=== PATIENT | female | born 1980 | race Caucasian/White ===

== ENCOUNTER → 2019-12-30 | Outpatient (CLI) | payer OTHER ==
--- NOTE | 2019-12-30 15:06 | US ---
EXAMINATION TYPE: Transabdominal DATE OF EXAM: 12/30/2019 12:53 PM COMPARISON: NONE CLINICAL HISTORY: O76 Absent heart tone. EXAM PERFORMED: Transabdominal (TA) EXAM MEASUREMENTS: GESTATIONAL AGE / DATING Physician Established: Not yet established Dates by LMP: LMP unknown Dates by First Scan: No previous Dates by Current Scan for: (11weeks/1 day) EDC: 07/19/2020 MATERNAL ANATOMY Uterus: 11.4 x 8.5 x 7.8cm; multiple Nabothian Cysts seen in cervix with largest = 0.8 x 1.2 x 1.4cm. Right Ovary: not seen Left Ovary: 4.2 x 2.0 x 2.5cm Post CDS / Adnexa: wnl Presence of free fluid: no Presence of corpus luteal cyst: in left ovary = 1.4 x 1.2 x 1.0cm Presence of subchorionic bleed: no GESTATION / SURVEY CRL: 4.2cm 11wks/1 day) Yolk Sac (normal less than 6mm): 3.5mm Heart Rate: 164bpm Rhythm: Normal IUP: Single, IUP Nuchal Translucency 10-14wks (normal less than 3mm): 0.8mm Date of LMP: unsure Beta HcG (if available): NA Single, live IUP, 11 weeks/1 day, EDC: 07/19/2020, HR 164bpm. Tech findings called to Dr Carson at exam's end. IMPRESSION: Single intrauterine gestation estimated at 11 weeks 0 days gestation based on crown-rump length. Card iac activity was documented at 164 bpm.
== END | disposition home or self-care (01) ==
LOC: RADUSWWP 12:24
PROVIDERS: ATTEND Obstetrics & Gynecology
DX: O76 Abnormality in fetal heart rate and rhythm complicating labor and delivery (principal); O09.511 Supervision of elderly primigravida, first trimester; Z3A.11 11 weeks gestation of pregnancy
CPT/HCPCS: 76801; 76813

== ENCOUNTER → 2020-05-09 | Outpatient (CLI) | payer OTHER ==
--- NOTE | 2020-05-09 16:01 | US ---
EXAMINATION TYPE: US OB anatomy transabd DATE OF EXAM: 05/09/2020 COMPARISON: NONE HISTORY: O36.63X0 Large for dates 3rd trimester Anatomy TECHNIQUE: Transabdominal (TA) EXAM MEASUREMENTS: GESTATIONAL AGE / DATING Physician Established: (29 weeks/6 days) EDC: 07/19/2020 Dates by LMP: Unknown Dates by First Scan: (29 weeks/6 days) EDC: 07/19/2020 Dates by Current Scan for: (30 weeks/2 days) EDC: 07/16/2020 SURVEY IUP: Single PLACENTA: Posterior PREVIA: No previa MORGAN: 13.1 cm Normal CERVICAL LENGTH (transabdominal: norm > 3.0cm): 3.2 cm BIOMETRY PRESENTATION: Vertex BPD: 7.9 cm 31 weeks / 4 days HC: 28.8 cm 31 weeks / 5 days AC: 23.7 cm 28 weeks / 0 days FL: 5.6 cm 29 weeks / 5 days ESTIMATED WEIGHT IN GRAMS: 1340 grams ESTIMATED WEIGHT IN LBS/OZ: 2 lbs. 15 oz. WEIGHT PERCENTAGE BASED ON ESTABLISHED DATE: 16 % HC/AC: 1.21 Normal FL/AC: 24% Normal HEART RATE: 116 bpm RHYTHM: Normal ANATOMY SEEN (within normal limits): Four Chamber Heart Outflow tracts: LVOT/RVOT Stomach Situs Nose / Lips Diaphragm Kidneys (bilateral) Bladder Cord Insert Three Vessel Cord Longitudinal Spine Transverse Spine Arms (bilateral) Legs (bilateral) ANATOMY NOT SEEN: due to position and advanced age * Lateral Vent (< 1 cm) cm * Cisterna Magna (< 1.1 cm) cm * Nuchal Fold (< 0.6 cm) cm * Cerebellum (varies with age) cm Choroid Plexus (bilateral) Midline Falx Cavus Septi Pellucidi Viable single IUP measuring 30 weeks 2 days with a heart rate of 116bpm and an estimated delivery shruthi e of 07/16/2020. IMPRESSION: Single intrauterine gestation estimated at 30 weeks 2 days gestation based on current ultrasound edwina urements. This has a calculated EDC of 07/16/2020 based on current measurements. Correlate this with t shelton physician established EDC of 07/19/2020. 2. Cardiac activity measures 116 bpm. 3. Estimated weight based on current measurements 1340 g. 4. Due to positioning and age, some anatomy of the fetus cannot be evaluated at this time .
== END ==
LOC: RADUSWWP 13:57
PROVIDERS: ATTEND Obstetrics & Gynecology
DX: O36.63X0 Maternal care for excessive fetal growth, third trimester, not applicable or unspecified (principal); Z3A.30 30 weeks gestation of pregnancy
CPT/HCPCS: 76811

== ENCOUNTER 2020-07-05 06:15 | Inpatient (IN) | payer OTHER ==
[2020-07-04 11:51] VITALS: BMI 31.7
[2020-07-05] MEDS ORDERED: CITRIC ACID-SODIUM CITRATE 15 ML CUP PO ONE (06:33)
[2020-07-05 07:13] LABS: Basophils % (A) 0 %; Eosinophils # (A) 0.1 k/uL (0-0.7); Eosinophils % (A) 1 %; HCT 35.5 % (34.0-46.0); HGB 12.5 gm/dL (11.4-16.0); Lymphocytes # (A) 2.3 k/uL (1.0-4.8); Lymphocytes % (A) 20 %; MCH 32.9 pg (25.0-35.0); MCHC 35.2 g/dL (31.0-37.0); MCV 93.4 fL (80.0-100.0); Mean Platelet Volume 7.3; Monocytes # (A) 0.7 k/uL (0-1.0); Monocytes % (A) 6 %; Neutrophils # (A) 8.3 k/uL (1.3-7.7); Neutrophils % (A) 72 %; Platelet Count 205 k/uL (150-450); RDW 12.6 % (11.5-15.5); WBC 11.5 k/uL (3.8-10.6)
[2020-07-05] MEDS ORDERED: LACTATED RINGERS 1,000 ML IV ONE (07:18)
--- NOTE | 2020-07-05 07:37 | P.HPOB ---
History of Present Illness H&P Date: 07/05/20 Chief Complaint: Precis term: Prior section Patient is a 40-year-old at 39 weeks gestation who arrives for repeat section. Risks/benefits/alternatives to this procedure were reviewed with the patient in detail and all questions were answered for her prior to proceeding to the operating room. We did have a 30 discussion with she and her and they agree with plan. Past Medical History Past Medical History: No Reported History History of Any Multi-Drug Resistant Organisms: None Reported Past Surgical History: Section, Orthopedic Surgery Additional Past Surgical History / Comment(s): RT HIP/PELVIS SURGERY TEEN Past Anesthesia/Blood Transfusion Reactions: No Reported Reaction Past Psychological History: No Psychological Hx Reported Smoking Status: Former smoker Past Alcohol Use History: None Reported Additional Past Alcohol Use History / Comment(s): QUIT SMOKING NOVEMBER 2019 Past Drug Use History: None Reported - Past Family History Mother Family Medical History: Cancer Additional Family Medical History / Comment(s): LIVER WITH METS Medications and Allergies Home Medications Medication Instructions Recorded Confirmed Type Pnv No.95/Ferrous Fum/Folic AC 1 each PO DAILY 07/04/20 07/05/20 History [ Multivitamin Tablet] Allergies Allergy/AdvReac Type Severity Reaction Status Date / Time adhesive tape AdvReac Rash/Hives Verified 07/04/20 11:46 Exam Osteopathic Statement: *. No significant issues noted on an osteopathic structural exam other than those noted in the History and Physical/Consult. Vital Signs Temp Pulse Resp BP Pulse Ox 07/05/20 06:32 97.6 F 91 16 122/79 99 Intake and Output 07/04/20 07/05/20 07/05/20 22:59 06:59 14:59 Other: Weight 72.575 kg - OBG Physical Exam Breast: both: normal (no masses) Abdomen: bowel sounds normal, no diffuse tenderness, no bruit present, no guarding noted, no hepatomegaly, no splenomegaly, no mass Vulva: both: normal Vagina: normal moisture, no discharge Cervix: no lesion, no discharge Uterus: normal size, normal contour Adnexa: both: normal Anus/Rectum: normal perianal skin, no rectal mass, no hemorrhoids, heme negative Results Result Diagrams: 07/05/20 06:31 Abnormal Lab Results - Last 24 Hours (Table) 07/05/20 Range/Units 06:31 WBC 11.5 H (3.8-10.6) k/uL Neutrophils # 8.3 H (1.3-7.7) k/uL
[2020-07-05] MEDS ORDERED: OXYTOCIN 10 UNIT/ML 1 ML VIAL ONE (08:05)
[2020-07-05] MEDS ORDERED: MORPHINE SULFATE (PF) 0.3 MG/0.3 ML SYR ONE (08:05)
[2020-07-05] MEDS ORDERED: PHENYLEPHRINE-0.9% NACL SYG 1,000 MCG/10 ML SYRINGE ONE (08:05)
[2020-07-05] MEDS ORDERED: ONDANSETRON 4 MG/2 ML VIAL ONE (08:05)
[2020-07-05] MEDS ORDERED: NALBUPHINE 10 MG/ML (1 ML AMP) ONE (08:05)
[2020-07-05] MEDS ORDERED: KETOROLAC 15 MG/ML 1 ML VIAL ONE (08:05)
[2020-07-05] MEDS ORDERED: diphenhydrAMINE 25 MG CAP PO PRN (08:51)
[2020-07-05] MEDS ORDERED: diphenhydrAMINE 50 MG CAP PO PRN (08:51)
[2020-07-05] MEDS ORDERED: ZOLPIDEM 5 MG TAB PO PRN (08:51)
[2020-07-05] MEDS ORDERED: NALOXONE 0.4 MG/ML 1 ML VIAL IV PRN (08:51)
[2020-07-05] MEDS ORDERED: ONDANSETRON 4 MG/2 ML VIAL IVP PRN (08:51)
[2020-07-05] MEDS ORDERED: diphenhydrAMINE 50 MG/ML 1 ML VIAL IVP PRN ×2 (08:51)
[2020-07-05] MEDS ORDERED: METOCLOPRAMIDE 5 MG/ML 2 ML VIAL IVP PRN (08:51)
[2020-07-05] MEDS ORDERED: HYDROmorphone 2 MG TAB PO PRN (08:51)
[2020-07-05] MEDS ORDERED: MEASLES-MUMPS-RUBELLA VACC/PF 12,500 UNIT/0.5 ML VIAL SQ ONE (08:51)
--- NOTE | 2020-07-05 08:58 | P.OP ---
Date of Procedure: 07/05/20 Preoperative Diagnosis: Uterine at term: Prior section Postoperative Diagnosis: Same Procedure(s) Performed: Repeat low transverse section Anesthesia: spinal Surgeon: Joshua Carson Shredded Filler Cigar Maker Machine #1: Blank Glez Estimated Blood Loss (ml): 400 IV fluids (ml): 1,000 Urine output (ml): 450 Pathology: other (Placenta) Condition: stable Disposition: floor Operative Findings: Male scores of 7 and 8 at one and 5 minutes Arsalan and weight of 7 lbs. 11 oz. Description of Procedure: She was taken to the operative suite where he spinal anesthetic was found be adequate. She was prepped and draped in normal sterile fashion and placed in the dorsal supine position with leftward tilt. Initially a Pfannenstiel skin incision was made and this incision was then carried through to underlying layer of the fashion with second knife. Fascia was then nicked in the midline and this opening was extended laterally with Benton scissors. Superior and inferior aspect of this incision were then grasped tented up and bluntly and sharply dissected off the rectus muscles. During this process peritoneum was entered. Perineal incision was then extended superiorly and inferiorly with good visualization of both bowel bladder. Bladder blade was then placed and bladder flap identified across face uterus with metastases scissors and bluntly dissected out of the operative field. Knife was then used to incise uterus. This opening was fully developed with hemostat and then extended bluntly. Head was then H medically delivered from left occiput anterior position a nuchal cord 1 was noted and easily reduced. Once this completed baby was fully delivered mouth nares were bulb suctioned and umbilical cord was clamped cut usual fashion. Nursery personnel was present and assumed care. Placenta was then delivered intact and Pitocin was added to the IV. Uterus was then exteriorized cleared of clots and debris and closed in 1 layer with 0 Vicryl suture. Once excellent hemostasis was obtained blood and debris was suctioned from the posterior cul-de-sac and uterus was reinserted into the abdomen. Reinspection reveals excellent hemostasis. Blood and debris was then withdrawn from the gutters and the peritoneal layer was reapproximated with 0 Vicryl suture. Fascial layer was then closed with 0 Vicryl suture. One layer of 3-0 Vicryl was placed in the deep subcuticular tissues to reapproximate skin and close space. Skin was then closed with 0 Vicryl subcuticularly. Sponge, lap, needle counts were all correct 2. Patient was then taken to the recovery room in stable and satisfactory condition.
[2020-07-05] MEDS: LACTATED RINGERS 1,000 ML IV SCH ×4 (11:34→19:25)
[2020-07-05] MEDS: KETOROLAC 15 MG/ML 1 ML VIAL IVP SCH ×3 (14:03→19:52)
[2020-07-05] MEDS: SENNOSIDES-DOCUSATE SODIUM 1 EACH TAB PO SCH (19:52)
[2020-07-06] MEDS: LACTATED RINGERS 1,000 ML IV SCH (00:07)
[2020-07-06] MEDS: KETOROLAC 15 MG/ML 1 ML VIAL IVP SCH ×4 (01:05→20:18)
[2020-07-06 06:55] LABS: Basophils % (A) 0 %; Eosinophils # (A) 0.1 k/uL (0-0.7); Eosinophils % (A) 1 %; HCT 32.5 % (34.0-46.0); HGB 11.3 gm/dL (11.4-16.0); Lymphocytes # (A) 2.4 k/uL (1.0-4.8); Lymphocytes % (A) 22 %; MCH 32.8 pg (25.0-35.0); MCHC 34.8 g/dL (31.0-37.0); MCV 94.4 fL (80.0-100.0); Mean Platelet Volume 7.6; Monocytes # (A) 0.6 k/uL (0-1.0); Monocytes % (A) 6 %; Neutrophils # (A) 7.7 k/uL (1.3-7.7); Neutrophils % (A) 70 %; Platelet Count 152 k/uL (150-450); RBC 3.45 m/uL (3.80-5.40); RDW 12.6 % (11.5-15.5)
--- NOTE | 2020-07-06 08:43 | P.PNOBGPC ---
Subjective - Subjective Principal diagnosis: Postop day 1 Interval history: Patient doing very well postop day 1. She is involuting, voiding and tolerating her diet. Will plan chart later today. Vital signs are stable afebrile. Patient reports: Reports appetite normal Henderson: in NICU Objective - Vital Signs Latest vital signs: Vital Signs Temp Pulse Resp BP Pulse Ox 07/06/20 08:05 98.3 F 75 18 137/89 100 07/06/20 03:58 97.7 F 88 16 123/70 07/06/20 00:00 97.3 F L 73 16 110/69 07/05/20 20:00 97.7 F 79 18 124/79 98 07/05/20 16:00 97.4 F L 70 15 129/76 98 07/05/20 11:00 98 F 74 15 115/71 98 07/05/20 10:31 68 16 129/76 99 07/05/20 10:01 67 16 116/67 97 07/05/20 09:46 75 16 130/77 97 07/05/20 09:31 81 16 128/74 98 07/05/20 09:16 83 16 116/68 97 07/05/20 09:01 96.7 F L 101 H 16 123/77 98 Intake and Output 07/05/20 07/06/20 07/06/20 22:59 06:59 14:59 Output Total 950 1800 Balance -950 -1800 Output: Urine 950 1800 Uretheral (Garcia) 650 Other: # Voids 1 - Exam Lungs: bilateral: normal Chest: Normal S1, Normal S2 Extremities: Present: normal Abdomen: Present: normal appearance, soft. Absent: distention, tenderness Incision: Present: normal, dry, intact Uterus: Present: normal, firm - Labs Labs: Abnormal Lab Results - Last 24 Hours (Table) 07/06/20 Range/Units 06:06 WBC 11.0 H (3.8-10.6) k/uL RBC 3.45 L (3.80-5.40) m/uL Hgb 11.3 L (11.4-16.0) gm/dL Hct 32.5 L (34.0-46.0) %
[2020-07-06] MEDS: SENNOSIDES-DOCUSATE SODIUM 1 EACH TAB PO SCH ×2 (08:49→22:16)
--- NOTE | 2020-07-06 09:47 | P.PN ---
Progress Note - Text Progress Note Date: 07/06/20 40 y/o female post op day #1 C/S with SAB/intrathecal duramorph for pain management Patient doing well and without complaint. Denies any numbness/paresthesias, no back pain, spinal injection site clean and dry. Patient reports adequate pain management. Taking motrin/tylenol po with good relief of pain. No itching, Nausea or difficulty breathing. Will follow up as indicated.
[2020-07-06] MEDS: ACETAMINOPHEN TAB 325 MG TAB PO PRN ×2 (11:35→20:17)
[2020-07-06] MEDS: IBUPROFEN 600 MG TAB PO SCH ×3 (13:30→20:19)
--- NOTE | 2020-07-07 07:16 | P.PNOBGPC ---
Subjective - Subjective Patient reports: Reports appetite normal, Reports voiding normally, Reports pain well controlled, Reports ambulating normally : doing well, in NICU Objective - Vital Signs Latest vital signs: Vital Signs Temp Pulse Resp BP Pulse Ox 07/06/20 23:29 98.1 F 72 16 118/62 07/06/20 20:00 98.0 F 72 16 118/52 07/06/20 16:00 98.2 F 62 16 120/65 07/06/20 12:00 97.8 F 62 16 126/78 07/06/20 08:05 98.3 F 75 18 137/89 100 - Exam Lungs: bilateral: normal Chest: Normal S1, Normal S2 Extremities: Present: normal Abdomen: Present: normal appearance, soft. Absent: distention, tenderness Incision: Present: normal, dry, intact Uterus: Present: normal, firm Assessment and Plan Assessment: Postoperative day #2. Patient is resting without complaints. Vital signs are stable and she is afebrile. Her incision is intact and dry. Patient's baby is in special care. Plan today is to continue routine care discharge home Thursday or Thursday. (1) Status post delivery Current Visit: Yes Status: Acute Code(s): Z98.891 - HISTORY OF UTERINE SCAR FROM PREVIOUS SURGERY SNOMED Code(s): 927623065
[2020-07-07] MEDS: SENNOSIDES-DOCUSATE SODIUM 1 EACH TAB PO SCH ×2 (08:18→20:51)
[2020-07-07] MEDS: IBUPROFEN 600 MG TAB PO SCH ×5 (08:42→23:40)
[2020-07-07] MEDS: KETOROLAC 15 MG/ML 1 ML VIAL IVP SCH ×2 (09:26→12:33)
--- NOTE | 2020-07-07 10:43 | P.PN ---
Progress Note - Text Progress Note Date: 07/07/20 A she is doing overall very well this morning. She is ambulating and voiding. She does complain that her right hand is numb there is no other signs or symptoms or neurologic deficits. Entry Driver Operator strength is equal bilaterally there is noted cramping nurse to through 12 appear grossly intact. There is no other loss of strength and is not her entire right arm is just from her approximately midpoint of her forearm down particularly the hand. This was occurring prior to her admission and section she relates. She did speak with anesthesia who believe that it is likely some type of carpal tunnel effect which seems likely with the amount of fluid that she is had from the and p ostoperatively. It is more of an annoyance than it difficulty for her. If it continues worsens or changes she may need more thorough neurologic evaluation and neuro consultation. It is also noted that she does have a large ganglion cyst on her right wrist in this may also be putting pressure in that area making her symptoms more acute. We'll continue to monitor closely. She also denies any other neurologic symptoms no visual changes no headaches and she is not unsteady on her feet she is able to ambulate well and voices no other complaints.
[2020-07-07] MEDS: ACETAMINOPHEN TAB 325 MG TAB PO PRN ×3 (11:23→23:47)
[2020-07-07 23:39] VITALS: TEMP 98.2
[2020-07-08] MEDS: IBUPROFEN 600 MG TAB PO SCH (04:04)
[2020-07-08] MEDS: ACETAMINOPHEN TAB 325 MG TAB PO PRN (07:43)
[2020-07-08] MEDS ORDERED: SIMETHICONE 80 MG CHEWABLE PO PRN (07:47)
--- NOTE | 2020-07-08 08:04 | P.PNOBGPC ---
Subjective - Subjective Patient reports: Reports appetite normal, Reports voiding normally, Reports pain well controlled, Reports ambulating normally : doing well Objective - Vital Signs Latest vital signs: Vital Signs Temp Pulse Resp BP Pulse Ox 07/07/20 23:38 98.2 F 73 18 145/90 100 07/07/20 16:00 98.4 F 76 16 137/80 99 - Exam Lungs: bilateral: normal Chest: Normal S1, Normal S2 Extremities: Present: normal Abdomen: Present: normal appearance, soft. Absent: distention, tenderness Incision: Present: normal, dry, intact Uterus: Present: normal, firm Assessment and Plan Assessment: Postoperative day #3. Patient is resting without complaints and wishes to go home. Vital signs are stable she is afebrile. Uterus is firm nontender and her incision is intact and dry. Patient is felt to be stable for discharge home so therefore we'll continue routine care today and discharge home this morning (1) Status post delivery Current Visit: Yes Status: Acute Code(s): Z98.891 - HISTORY OF UTERINE SCAR FROM PREVIOUS SURGERY SNOMED Code(s): 010055249
--- NOTE | 2020-07-08 08:10 | P.DS ---
Providers Date of admission: 07/05/20 06:15 Expected date of discharge: 07/08/20 Attending physician: Joshua Carson Primary care physician: Stated None - Discharge Diagnosis(es) (1) Status post delivery Current Visit: Yes Status: Acute Hospital Course: Please see dictated H&P per Dr. Crason on this patient's admission and delivery. Brief summary this is a 40-year-old 2 para 1 female 39-3/7 weeks who is admitted to labor and delivery for elective repeat section. On postoperative 3 patient's felt be stable for discharge home follow up Dr. Carson in 1 week. Procedures: Repeat low transverse section Plan - Discharge Summary Discharge Rx Participant: Yes New Discharge Prescriptions: New Ibuprofen [Motrin] 600 mg PO QID #30 tab oxyCODONE HCL [OxyIR] 5 mg PO Q6H PRN #12 tab PRN Reason: Pain No Action Pnv No.95/Ferrous Fum/Folic AC [ Multivitamin Tablet] 1 each PO DAILY Discharge Medication List Pnv No.95/Ferrous Fum/Folic AC [ Multivitamin Tablet] 1 each PO DAILY 07/04/20 [History] Ibuprofen [Motrin] 600 mg PO QID #30 tab 07/08/20 [Rx] oxyCODONE HCL [OxyIR] 5 mg PO Q6H PRN #12 tab 07/08/20 [Rx] Follow up Appointment(s)/Referral(s): Joshua Carson DO [Doctor of Osteopathic Medicine] - 07/12/20 1:30 pm (Please see Dr. Carson on August 13 at 10:15 AM as well.) Patient Instructions/Handouts: (DC) Activity/Diet/Wound Care/Special Instructions: No heavy lifting or strenuous activities for 6 weeks. No intercourse or anything per vagina for 6 weeks. Please call if any fever, chills, excessive vaginal bleeding, and/or abdominal pain. Discharge Disposition: HOME SELF-CARE
[2020-07-08 08:38] VITALS: BP 137/83; PULSE 71; RESP 16
== END 2020-07-08 09:30 | disposition home or self-care (01) | DRG 788 ==
LOC: 4FBP 06:15
PROVIDERS: ADMIT Obstetrics & Gynecology; ATTEND Obstetrics & Gynecology
PROC: 10D00Z1 Extraction of Products of Conception, Low, Open Approach (ICD-10-PCS; principal; 2020-07-05 08:00)
DX: O34.211 Maternal care for low transverse scar from previous cesarean delivery (principal); Z37.0 Single live birth; Z3A.39 39 weeks gestation of pregnancy; Z87.891 Personal history of nicotine dependence; M67.431 Ganglion, right wrist
CPT/HCPCS: 85025; 86850; 86900; 86901; 88307

== ENCOUNTER 2023-02-23 10:01 | Emergency (ER) | payer OTHER ==
[2023-02-23] MEDS ORDERED: ACET/COD 300 MG/30 MG STARTER PACK 6 TAB BTL PO STA (10:40)
[2023-02-23] MEDS ORDERED: HYDROcodone/APAP 5-325MG 1 EACH TAB PO STA (10:41)
--- NOTE | 2023-02-23 10:42 | ED ---
Extremity Problem HPI - General Chief complaint: Extremity Problem,Nontraumatic Stated complaint: right wrist cyst Time Seen by Provider: 02/23/23 10:23 Source: patient, RN notes reviewed Mode of arrival: ambulatory Limitations: no limitations - History of Present Illness Initial comments: 42-year-old female presents emergency Department chief complaint of right wrist pain. Patient states that she has a ganglion cyst she states that it has been there before states it went away but has come back if is very painful. She has seen a hand surgeon out of [facility] there is nothing to do unless it was enlarged. Patient states that it's very painful and worse it's been. Patient denies any trauma no fevers or chills no other associated symptoms. - Related Data Home Medications Medication Instructions Recorded Confirmed Pnv No.95/Ferrous Fum/Folic AC 1 each PO DAILY 07/04/20 07/05/20 [ Multivitamin Tablet] Previous Rx's Medication Instructions Recorded Ibuprofen [Motrin] 600 mg PO QID #30 tab 07/08/20 oxyCODONE HCL [OxyIR] 5 mg PO Q6H PRN #12 tab 07/08/20 Ibuprofen [Motrin] 600 mg PO Q8HR PRN #20 tab 02/23/23 Allergies Allergy/AdvReac Type Severity Reaction Status Date / Time adhesive tape AdvReac Rash/Hives Verified 02/23/23 10:17 Review of Systems ROS Statement: Those systems with pertinent positive or pertinent negative responses have been documented in the HPI. ROS Other: All systems not noted in ROS Statement are negative. Past Medical History Past Medical History: No Reported History History of Any Multi-Drug Resistant Organisms: None Reported Past Surgical History: Section, Orthopedic Surgery Additional Past Surgical History / Comment(s): RT HIP/PELVIS SURGERY TEEN Past Anesthesia/Blood Transfusion Reactions: No Reported Reaction Past Psychological History: No Psychological Hx Reported Smoking Status: Former smoker Past Alcohol Use History: Occasional Past Drug Use History: None Reported - Past Family History Mother Family Medical History: Cancer Additional Family Medical History / Comment(s): LIVER WITH METS General Exam Limitations: no limitations General appearance: alert, in no apparent distress Head exam: Present: atraumatic, normocephalic, normal inspection Respiratory exam: Present: normal lung sounds bilaterally. Absent: respiratory distress, wheezes, rales, rhonchi, stridor Cardiovascular Exam: Present: regular rate, normal rhythm, normal heart sounds. Absent: systolic murmur, diastolic murmur, rubs, gallop, clicks Extremities exam: Present: other (Right wrist volar aspect there is a 1 cm mildly mobile firm tender cyst noted) Course Vital Signs 02/23/23 10:15 Temperature 98 F Pulse Rate 69 Respiratory 18 Rate Blood Pressure 131/84 O2 Sat by Pulse 98 Oximetry Medical Decision Making - Medical Decision Making Was pt. sent in by a medical professional or institution ([facility], [employer], urgent care, hospital, or long term...) When possible be specific @ -No Did you speak to anyone other than the patient for history (EMS, parent, family, police, friend...)? What history was obtained from this source @ -No Did you review nursing and triage notes (agree or disagree)? Why? @ -I reviewed and agree with nursing and triage notes Were old charts reviewed (outside hosp., previous admission, EMS record, old EKG, old radiological studies, urgent care reports/EKG's, long term records)? Report findings @ -No old charts were reviewed Differential Diagnosis (chest pain, altered mental status, abdominal pain women, abdominal pain men, vaginal bleeding, weakness, fever, dyspnea, syncope, headache, dizziness, GI bleed, back pain, seizure, CVA, palpatations, mental health, musculoskeletal)? @ -Wrist fracture, wrist sprain, ganglion cyst, abscess EKG interpreted by me (3pts min.). @ -None X-rays interpreted by me (1pt min.). @ -None done CT interpreted by me (1pt min.). @ -None done U/S interpreted by me (1pt. min.). @ -None done What testing was considered but not performed or refused? (CT, X-rays, U/S, labs)? Why? @ -None What meds were considered but not given or refused? Why? @ -None Did you discuss the management of the patient with other professionals (professionals i.e. [facility], [employer], lab, RT, psych nurse, social sciences instructor, truck engine technician, teacher, credit control officer, case work aide)? Give summary @ -No Was smoking cessation discussed for >3mins.? @ -No Was critical care preformed (if so, how long)? @ -No Were there social determinants of health that impacted care today? How? (Homelessness, low income, unemployed, alcoholism, drug addiction, transportation, low edu. Level, literacy, decrease access to med. care, usp, rehab)? @ -No Was there de-escalation of care discussed even if they declined (Discuss DNR or withdrawal of care, Hospice)? DNR status @ -No What co-morbidities impacted this encounter? (DM, HTN, Smoking, COPD, CAD, Cancer, CVA, ARF, Chemo, Hep., AIDS, mental health diagnosis, sleep apnea, morbid obesity)? @ -None Was patient admitted / discharged? Hospital course, mention meds given and route, prescriptions, significant lab abnormalities, going to OR and other pertinent info. @ -Discharged patient has a right wrist ganglion cyst. There is no evidence of abscess or other complicating factor. Patient is requesting drainage of this though this is over the radial artery region and will need to follow-up with orthopedics. Undiagnosed new problem with uncertain prognosis? @ -No Drug Therapy requiring intensive monitoring for toxicity (Heparin, Nitro, Insulin, Cardizem)? @ -No Were any procedures done? @ -No Diagnosis/symptom? @ -Ganglion cyst right wrist Acute, or Chronic, or Acute on Chronic? @ -Acute Uncomplicated (without systemic symptoms) or Complicated (systemic symptoms)? @ -uncomplicated. Side effects of treatment? @ -No Exacerbation, Progression, or Severe Exacerbation? @ -No Poses a threat to life or bodily function? How? (Chest pain, [place], [place], pneumonia, PE, COPD, DKA, ARF, appy, cholecystitis, CVA, Diverticulitis, Homicidal, Suicidal, threat to staff... and all critical care pts) @ -No Disposition Clinical Impression: Ganglion cyst of wrist Disposition: HOME SELF-CARE Condition: Stable Instructions (If sedation given, give patient instructions): Ganglion Cyst (ED) Additional Instructions: Please return to the Emergency Department if symptoms worsen or any other concerns. Prescriptions: Ibuprofen [Motrin] 600 mg PO Q8HR PRN #20 tab PRN Reason: Pain Is patient prescribed a controlled substance at d/c from ED?: No Referrals: Ansley Salter PAC [REFERRING] - 1-2 days Ayana Vizcaino DO [Doctor of Osteopathic Medicine] - 1-2 days Time of Disposition: 10:42
[2023-02-23 11:21] VITALS: BP 121/78; PULSE 76; RESP 16; TEMP 98.7
== END 2023-02-23 11:13 | disposition home or self-care (01) ==
LOC: EC 10:01
DX: M67.431 Ganglion, right wrist (principal); Z87.891 Personal history of nicotine dependence; Z88.8 Allergy status to other drugs, medicaments and biological substances
CPT/HCPCS: 99283